=== PATIENT | female | born 1980 | race Caucasian/White ===

== ENCOUNTER 2017-02-06 11:12 | Emergency (ER) | payer OTHER ==
[2017-02-06] MEDS ORDERED: NS 0.9% 1000 ML* 1,000 ML IV ONE (11:44)
[2017-02-06 12:12] LABS: Hematocrit 39 % (35-47); Hemoglobin 13.4 g/dl (12.0-16.0); Mean Corpuscular HGB Conc 34 g/dl (31-36); Mean Corpuscular Hemoglobin 31 pg (27-31); Mean Corpuscular Volume 91 fL (80-97); Mean Platelet Volume 7 um3 (7.4-10.4); Red Cell Distribution Width 13 % (10.5-15); White Blood Count 5.4 10^3/ul (3.5-10.8)
[2017-02-06 12:28] LABS: ALT 18 U/L (7-52); AST 22 U/L (13-39); Albumin 4.4 g/dL (3.2-5.2); Alkaline Phosphatase 50 U/L (34-104); Anion Gap 7 mmol/L (2-11); BUN/Creatinine Ratio 16.5 (8-20); Blood Urea Nitrogen 14 mg/dL (6-24); CO2 Carbon Dioxide 27 mmol/L (22-32); Calcium 9.5 mg/dL (8.6-10.3); Chloride 104 mmol/L (101-111); EGFR African American 97.3 (>60); EGFR Non-African American 75.7 (>60); Globulin 3.4 g/dL (2-4); Glucose 100 mg/dL (70-100); Magnesium 2.1 mg/dL (1.9-2.7); Potassium 3.4 mmol/L (3.5-5.0); Sodium 138 mmol/L (133-145); Total Protein 7.8 g/dL (6.4-8.9)
[2017-02-06 12:32] LABS: Troponin I 0.01 ng/mL (<0.04)
[2017-02-06] MEDS ORDERED: Iohexol 350* (CONTRAST) 500 ML MDV IV ONE (12:40)
[2017-02-06 13:04] LABS: TSH (Thyroid Stimulating Horm) 1.87 mcIU/mL (0.34-5.60)
--- NOTE | 2017-02-06 13:19 | RAD ---
INDICATION: Frontal headache and bilateral hand weakness and numbness. COMPARISON: There are no prior studies available for comparison. TECHNIQUE: Contiguous axial sections of the brain were obtained from the skull base to the vertex without contrast. FINDINGS: The ventricles, cisterns and sulci are within normal limits. No significant focal abnormality or mass effect is seen. There is no evidence for hemorrhage. No significant focal osseous abnormality is seen. The visualized portion of the paranasal sinuses and mastoid air cells appear clear. IMPRESSION: NO EVIDENCE FOR GROSS ACUTE INFARCT, MASS EFFECT OR HEMORRHAGE.
[2017-02-06 13:24] LABS: Urine Bacteria Absent (Absent); Urine Bilirubin Negative (Negative); Urine Glucose Negative (Negative); Urine Nitrite Negative (Negative)
--- NOTE | 2017-02-06 13:29 | RAD ---
INDICATION: 36-year-old with intermittent frontal headaches and bilateral hand weakness and numbness. COMPARISON: None TECHNIQUE: Noncontrast axial source images was performed from the skull base to the thoracic inlet. Coronal and and sagittal reformatted images were generated. FINDINGS: Vertebrae: There is no fracture or acute focal bony lesion. Alignment: The craniocervical junction appears normal. The cervical vertebrae are normally aligned. Central Canal: There are no significant CT abnormalities of the central canal or foramina. MR imaging is a more sensitive method to evaluate the canal and foramina. Intervertebral disc spaces: The disc spaces are maintained. Brain: The visualized brain appears unremarkable. Soft tissues: The visualized soft tissue elements of the neck are unremarkable. The prevertebral soft tissues appear normal. The lung apices are clear. IMPRESSION: NEGATIVE EXAMINATION.
--- NOTE | 2017-02-06 13:34 | RAD ---
INDICATION: Chest pain, history of pulmonary embolism. COMPARISON: There are no prior studies available for comparison. TECHNIQUE: A CT angiogram of the chest was performed with intravenous following intravenous injection of 72 ml of Omnipaque 350 nonionic contrast. Contiguous axial sections were obtained from the lung apices through the lung bases. Images were reconstructed in the coronal and sagittal planes. FINDINGS: There is relatively homogeneous opacification of the pulmonary arteries. No intraluminal filling defect or pulmonary embolism is seen. The heart is within normal limits in size. No pericardial effusion is present. The thoracic aorta is normal in caliber and demonstrates homogeneous contrast opacification. No significant enlarged mediastinal or hilar lymph nodes are seen. There is residual thymus tissue present within the anterior mediastinum. There is mild dependent bilateral lower lobe subsegmental atelectasis. The lungs are otherwise clear. No pleural effusion is seen. No significant focal osseous abnormality is seen. IMPRESSION: NO EVIDENCE FOR PULMONARY EMBOLISM.
--- NOTE | 2017-02-06 13:39 | RAD ---
INDICATION: Bilateral and intermittent hand and arm numbness COMPARISON: CT brain same date TECHNIQUE: Axial source images were acquired with coronal and sagittal reconstructions. CT angiographic technique was utilized with injection of 80 mL Omnipaque 350. FINDINGS: Aortic arch: There are no CT angiogram abnormalities of the arch or the great vessels arising from the arch. Right carotid: The internal carotid artery, carotid bifurcation, extracranial portions of the internal carotid artery, carotid artery at the skull base, carotid siphon, and carotid termination appear normal. Left carotid:The internal carotid artery, carotid bifurcation, extracranial portions of the internal carotid artery, carotid artery at the skull base, carotid siphon, and carotid termination appear normal. Right middle and anterior cerebral arteries: There are no CT angiographic abnormalities of the middle or anterior cerebral arteries. Left middle and anterior cerebral arteries: There are no CT angiographic abnormalities of the middle or anterior cerebral arteries Right vertebral: The CT angiographic appearance of the vertebral artery is normal. Left vertebral: The CT angiographic appearance of the vertebral artery is normal. Basilar artery: The basilar artery and basilar tip appear normal. Posterior cerebral arteries: The distal distribution of the right and left posterior cerebral arteries is normal. [place]: The CT angiographic appearance of the [place] is normal. Source images show no evidence of mass or adenopathy within the neck. There are no focal brain parenchymal abnormalities or abnormal areas of enhancement. IMPRESSION: NEGATIVE CTA OF THE HEAD AND NECK CPT II Codes: 3100F RS
[2017-02-06 14:40] VITALS: BP 118/77
--- NOTE | 2017-02-06 14:40 | ED ---
Fatou Rosales Rebecca, scribed for Daniel Pickering MD on 02/06/17 at 1142 . Neurological HPI - HPI Summary HPI Summary: Pt is a 36 y/o F BIBA who presents to ED c/o bilateral UE numbness. Pt reports the episode began this morning at 0930, starting in the hands, then progressively moving upwards up to the elbows. Describes the sensation as feeling "like pins and needles" and that her "hands started feeling really heavy." Upon evaluation at 1130 in the ED, 2 hours after onset, sx are still present but have moved downwards to just affect the hands. Additionally c/o hand tremors, sudden onset, moderate frontal ROOT and bilateral "glossy" vision. Her vision was described as that the "vision didn't cut out, but it was very glossy." ROOT is currently resolved, though when it was present it was moderate, ranked 5/10 and resolved spontaneously. Additionally notes a sharp, L-sided rib pain that began suddenly last night and resolved after a brief time. Denies any acute LE numbness, acute neck pain, SOB, CP, palpitations, difficultly hearing, abd pain and facial numbness. Reports chronic bilateral foot numbness secondary to poor circulation, but no acute numbness. No bladder or bowel changes. Prior similar episode of bilateral UE numbness last night that subsided suddenly after 3-4 hours. PMHx clotting disorder, PE, chronic neck pain and migraines every few days. Pt reports she will sometimes experience auras prior to onset of migraines, described as "feeling weird." Current ROOT is similar to those she typically experiences. Recently began her period which is typically heavy. - History of Current Complaint Chief Complaint: EDNeurologicalDeficit Stated Complaint: HANDS AND ARMS TINGLING Time Seen by Provider: 02/06/17 11:22 Hx Obtained From: Patient Onset/Duration: Started hours ago - 0930 this morning Onset Severity: Moderate - 5/10 Current Severity: None Headache Location: Frontal Pain Intensity: 0 Pain Scale Used: 0-10 Numeric Character: Numbness/Tingling - Bilateral UE numbness Aggravating: Nothing Alleviating: Spontanious Resolution Associated Signs and Symptoms: Positive: Visual Changes - "glossy" vision, Headache - resolved. Negative: Chest Pain, Shortness of Breath, Palpitations - Allergy/Home Medications Allergies/Adverse Reactions: Allergies Allergy/AdvReac Type Severity Reaction Status Date / Time No Known Allergies Allergy Verified 02/06/17 11:31 PMH/Surg Hx/FS Hx/Imm Hx Endocrine/Hematology History: Reports: Other Endocrine/Hematological Disorders - "Clotting disorder" Respiratory History: Reports: Hx Pulmonary Embolism Musculoskeletal History: Reports: Other Musculoskeletal History - Hx Chronic neck pain Neurological History: Reports: Hx Migraine Infectious Disease History: No Infectious Disease History: Denies: Traveled Outside the [place] in Last 30 Days - Family History Known Family History: Positive: Hypertension, Diabetes, Other - CA, MS (mother) - Social History Alcohol Use: None Substance Use Type: Reports: None Smoking Status (MU): Former Smoker Review of Systems Positive: Other - Bilateral "glossy" vision Positive: Other - NEGATIVE: difficult hearing Negative: Palpitations, Chest Pain Negative: Shortness Of Breath Negative: Abdominal Pain Positive: Other - L-sided rib pain - resolved NEGATIVE: acute neck pain Neurological: Other - Hand tremors Positive: Headache - Moderate frontal ROOT - resolved, Numbness - Bilateral UE numbness; NEGATIVE: acute LE numbness and facial numbness All Other Systems Reviewed And Are Negative: Yes Physical Exam - Summary Physical Exam Summary: General: well-appearing, no pain distress Skin: warm, color reflects adequate perfusion, dry Head: normal Eyes: EOMI, KASSIE ENT: normal Neck: supple, nontender Respiratory: CTA, breath sounds present Cardiovascular: RRR Abdomen: soft, nontender Bowel: present Musculoskeletal: normal, strength/ROM intact, pulses are symmetric and equal, benign examination of the LE Neurological: sensory intact, A&O x3, when she puts her arms out she still has a slight tremor in the left hand, director sales strengths are symmetric but 4/5 strength , no facial droop. Bicep, brachioradialis and tricep reflexes are all intact bilaterally. Psychological: affect/mood appropriate NIH: 0 GCS: 15 Triage Information Reviewed: Yes Vital Signs On Initial Exam: Initial Vitals BP 139/79 02/06/17 11:18 Vital Signs Reviewed: Yes - Gail Coma Scale Best Eye Response: 4 - Spontaneous Best Motor Response: 6 - Obeys Commands Best Verbal Response: 5 - Oriented Coma Scale Total: 15 Diagnostics - Vital Signs Vital Signs Temp Pulse Resp BP Pulse Ox 02/06/17 11:20 98.3 F 97 17 139/79 99 02/06/17 11:18 139/79 - Laboratory Lab Results: Lab Results 02/06/17 02/06/17 02/06/17 Range/Units 12:02 12:02 12:02 WBC 5.4 (3.5-10.8) 10^3/ul RBC 4.30 (4.0-5.4) 10^6/ul Hgb 13.4 (12.0-16.0) g/dl Hct 39 (35-47) % MCV 91 (80-97) fL MCH 31 (27-31) pg MCHC 34 (31-36) g/dl RDW 13 (10.5-15) % Plt Count 328 (150-450) 10^3/ul MPV 7 L (7.4-10.4) um3 Neut % (Auto) 59.5 (38-83) % Lymph % (Auto) 28.4 (25-47) % [place] % (Auto) 6.3 (1-9) % Eos % (Auto) 4.4 (0-6) % Baso % (Auto) 1.4 (0-2) % Absolute Neuts (auto) 3.2 (1.5-7.7) 10^3/ul Absolute Lymphs (auto) 1.5 (1.0-4.8) 10^3/ul Absolute Monos (auto) 0.3 (0-0.8) 10^3/ul Absolute Eos (auto) 0.2 (0-0.6) 10^3/ul Absolute Basos (auto) 0.1 (0-0.2) 10^3/ul Absolute Nucleated RBC 0 10^3/ul Nucleated RBC % 0 INR (Anticoag Therapy) 0.88 L (0.89-1.11) APTT 27.0 (26.0-36.3) seconds D-Dimer, Quantitative < 200 (Less Than 230) ng/mL Sodium 138 (133-145) mmol/L Potassium 3.4 L (3.5-5.0) mmol/L Chloride 104 (101-111) mmol/L Carbon Dioxide 27 (22-32) mmol/L Anion Gap 7 (2-11) mmol/L BUN 14 (6-24) mg/dL Creatinine 0.85 (0.51-0.95) mg/dL Est GFR ( Amer) 97.3 (>60) Est GFR (Non-Af Amer) 75.7 (>60) BUN/Creatinine Ratio 16.5 (8-20) Glucose 100 (70-100) mg/dL Calcium 9.5 (8.6-10.3) mg/dL Magnesium 2.1 (1.9-2.7) mg/dL Total Bilirubin 0.40 (0.2-1.0) mg/dL AST 22 (13-39) U/L ALT 18 (7-52) U/L Alkaline Phosphatase 50 (34-104) U/L Troponin I 0.01 (<0.04) ng/mL C-Reactive Protein 2.40 (< 5.00) mg/L Total Protein 7.8 (6.4-8.9) g/dL Albumin 4.4 (3.2-5.2) g/dL Globulin 3.4 (2-4) g/dL Albumin/Globulin Ratio 1.3 (1-3) TSH 1.87 (0.34-5.60) mcIU/mL Beta HCG, Quant < 0.60 mIU/mL Urine Color Urine Appearance Urine pH (5-9) Ur Specific [place] (1.010-1.030) Urine Protein (Negative) Urine Ketones (Negative) Urine Blood (Negative) Urine Nitrate (Negative) Urine Bilirubin (Negative) Urine Urobilinogen (Negative) Ur Leukocyte Esterase (Negative) Urine WBC (Auto) (Absent) Urine RBC (Auto) (Absent) Ur Squamous Epith Cells (Absent) Urine Bacteria (Absent) Urine Glucose (Negative) 02/06/17 Range/Units 12:15 WBC (3.5-10.8) 10^3/ul RBC (4.0-5.4) 10^6/ul Hgb (12.0-16.0) g/dl Hct (35-47) % MCV (80-97) fL MCH (27-31) pg MCHC (31-36) g/dl RDW (10.5-15) % Plt Count (150-450) 10^3/ul MPV (7.4-10.4) um3 Neut % (Auto) (38-83) % Lymph % (Auto) (25-47) % [place] % (Auto) (1-9) % Eos % (Auto) (0-6) % Baso % (Auto) (0-2) % Absolute Neuts (auto) (1.5-7.7) 10^3/ul Absolute Lymphs (auto) (1.0-4.8) 10^3/ul Absolute Monos (auto) (0-0.8) 10^3/ul Absolute Eos (auto) (0-0.6) 10^3/ul Absolute Basos (auto) (0-0.2) 10^3/ul Absolute Nucleated RBC 10^3/ul Nucleated RBC % INR (Anticoag Therapy) (0.89-1.11) APTT (26.0-36.3) seconds D-Dimer, Quantitative (Less Than 230) ng/mL Sodium (133-145) mmol/L Potassium (3.5-5.0) mmol/L Chloride (101-111) mmol/L Carbon Dioxide (22-32) mmol/L Anion Gap (2-11) mmol/L BUN (6-24) mg/dL Creatinine (0.51-0.95) mg/dL Est GFR ( Amer) (>60) Est GFR (Non-Af Amer) (>60) BUN/Creatinine Ratio (8-20) Glucose (70-100) mg/dL Calcium (8.6-10.3) mg/dL Magnesium (1.9-2.7) mg/dL Total Bilirubin (0.2-1.0) mg/dL AST (13-39) U/L ALT (7-52) U/L Alkaline Phosphatase (34-104) U/L Troponin I (<0.04) ng/mL C-Reactive Protein (< 5.00) mg/L Total Protein (6.4-8.9) g/dL Albumin (3.2-5.2) g/dL Globulin (2-4) g/dL Albumin/Globulin Ratio (1-3) TSH (0.34-5.60) mcIU/mL Beta HCG, Quant mIU/mL Urine Color Straw Urine Appearance Clear Urine pH 7.0 (5-9) Ur Specific [place] 1.003 L (1.010-1.030) Urine Protein Negative (Negative) Urine Ketones Negative (Negative) Urine Blood 1+ H (Negative) Urine Nitrate Negative (Negative) Urine Bilirubin Negative (Negative) Urine Urobilinogen Negative (Negative) Ur Leukocyte Esterase Negative (Negative) Urine WBC (Auto) Absent (Absent) Urine RBC (Auto) Trace(0-2/hpf) (Absent) Ur Squamous Epith Cells Present H (Absent) Urine Bacteria Absent (Absent) Urine Glucose Negative (Negative) Result Diagrams: 02/06/17 12:02 02/06/17 12:02 Lab Statement: Any lab studies that have been ordered have been reviewed, and results considered in the medical decision making process. - CT Brain CT CT Interpretation: No Acute Changes - NO EVIDENCE FOR GROSS ACUTE INFARCT, MASS EFFECT OR HEMORRHAGE. ED phsyician reviewed this radiology report and agrees. CT Interpretation Completed By: Radiologist C-Spine CT CT Interpretation: No Acute Changes - NEGATIVE EXAMINATION. ED physician reviewed this radiology report and agrees. CT Interpretation Completed By: Radiologist Chest/Thorax CTA CT Interpretation: No Acute Changes - NO EVIDENCE FOR PULMONARY EMBOLISM. 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-Paretic Hand: Both Correctly Best Gaze (Only Horizontal Eye Movement): Normal Visual Field Testing: No Visual Loss Facial Paresis-Pt to Smile & Close Eyes or Grimace Symmetry: Normal/Symmetrical Motor Function - Right Arm: No Drift-Holds 10 Seconds Motor Function - Left Arm: No Drift-Holds 10 Seconds Motor Function - Right Leg: No Drift-Holds 10 Seconds Motor Function - Left Leg: No Drift-Holds 10 Seconds Limb Ataxia-Must be out of Proportion to Weakness Present: Absent Sensory (Use Pinprick to Test Arms/Legs/Trunk/Face): Normal Best Language (Describe Picture, Name Items): No Aphasia Dysarthria (Read Several Words): Normal Extinction and Inattention: No Abnormality Total Score: 0 Re-Evaluation - Re-Evaluation First Eval Re-Evaluation Time: 11:57 Change: Unchanged Comment: Tested her bicep, brachioradialis and tricep reflexes, all of which are intact bilaterally. She revealed to have a PMHx of a clotting disorder and PE. Second Eval Re-Evaluation Time: 14:22 Change: Improved Comment: All Sx have completely resolved. Course/Dx - Course Assessment/Plan: Pt is a 36 y/o F BIBA who presents to ED c/o bilateral UE numbness. Pt reports the episode began this morning at 0930, starting in the hands, then progressively moving upwards up to the elbows. Describes the sensation as feeling "like pins and needles" and that her "hands started feeling really heavy." Upon evaluation at 1130 in the ED, 2 hours after onset, sx are still present but have moved downwards to just affect the hands. Additionally c/o hand tremors, sudden onset, moderate frontal ROOT and bilateral "glossy" vision. Her vision was described as that the "vision didn't cut out, but it was very glossy." ROOT is currently resolved, though when it was present it was moderate, ranked 5/10 and resolved spontaneously. Additionally notes a sharp, L-sided rib pain that began suddenly last night and resolved after a brief time. Denies any acute LE numbness, acute neck pain, SOB, CP, palpitations , difficultly hearing, abd pain and facial numbness. Reports chronic bilateral foot numbness secondary to poor circulation, but no acute numbness. No bladder or bowel changes. Prior similar episode of bilateral UE numbness last night that subsided suddenly after 3-4 hours. PMHx chronic neck pain and migraines every few days. Pt reports she will sometimes experience auras prior to onset of migraines, described as "feeling weird." Current ROOT is similar to those she typically experiences. Recently began her period which is typically heavy. CT brain, CTA head/neck, CT C-Spine and CTA chest/thorax all reveal no acute findings. EKG reveals sinus rhythm with no STEMI and no ectopy. In the ED course , the pt was administered fluids which improved sx. Discussed care of pt with Dr. Olguin who advised a head/neck CTA, CT head and neck with labs and requested a call back with results. Discussed care of pt with Dr. Olguin again at 1424 who believes that it most likely sounds to be a complex migraine and that she can follow up in his office. Elevated BP noted and advised to f/u with PCP. SX COMPLETELY IMPROVED AT DISCHARGE. DISCUSSED WITH DR OLGUIN, NEUROLOGY. MOST PROBABLE CAUSE IS COMPLEX MIGRAINE. THE PLAN IS FOR THE PATIENT TO F/U WITH DR OLGUIN AN OUT PATIENT; RETURN IF WORSE. THIS AND RESULTS ALL DISCUSSED WITH THE PATIENT. - Diagnoses Provider Diagnoses: Headache, Paresthesia of both hands, Hand weakness - Physician Notifications Discussed Care Of Patient With: Angel Olguin Time Discussed With Above Provider: 11:38 Instructed by Provider To: Other - Advised a head/neck CTA, CT head and neck with labs and requested a call back with results. Discussed care of pt with Dr. Olguin again at 1424 who believes that it most likely sounds to be a complex migraine and that she can follow up in his office. Discharge - Discharge Plan Condition: Stable Disposition: HOME Patient Education Materials: Acute Headache (ED), Paresthesia (ED) Referrals: Yazmin Villegas MD [Primary Care Provider] - Angel Olguin MD [Medical Doctor] - [facility] [Provider Group] Additional Instructions: FOLLOW UP WITH YOUR DOCTOR. RETURN TO THE EMERGENCY DEPARTMENT FOR ANY WORSENING OF YOUR CONDITION; PAIN, WEAKNESS, NUMBNESS, DIFFICULTY WITH VISION OR SPEECH OR QUESTIONS OR CONCERNS. The documentation as recorded by the Fatou mei Rebecca accurately reflects the service I personally performed and the decisions made by me, Daniel Pickering MD.
== END 2017-02-06 14:51 | disposition home or self-care (01) ==
LOC: ED 11:12
DX: R21 Rash and other nonspecific skin eruption (principal); R20.9 Unspecified disturbances of skin sensation; R53.1 Weakness
CPT/HCPCS: 36415; 70450; 70496; 70498; 71275; 72125; 80053; 81003; 81015; 83735; 84443; 84484; 84702; 85025; 85379; 85610; 85730; 86140; 93005; 99282; Q9967

== ENCOUNTER 2018-03-20 07:35 | Emergency (ER) | payer OTHER ==
[2018-03-20 08:19] VITALS: BP 131/74
--- NOTE | 2018-03-20 10:26 | UC ---
Respiratory Complaint HPI - HPI Summary HPI Summary: 2 MONTHS OF INTERMITTENT, WAXING AND WANING URI SYMPTOMS INCLUDING COUGH, CONGESTION AND SINUS PRESSURE. NO FEVER, NAUSEA/VOMITING, SORE THROAT OR EAR PAIN. - History of Current Complaint Chief Complaint: UCRespiratory Stated Complaint: COUGH Time Seen by Provider: 03/20/18 09:31 Hx Obtained From: Patient Hx Last Menstrual Period: 03/16/18 Onset/Duration: Gradual Onset, Lasting Weeks, Still Present Severity Initially: Moderate Severity Currently: Moderate Pain Intensity: 3 Pain Scale Used: 0-10 Numeric Character: Cough: Nonproductive Aggravating Factors: Nothing Alleviating Factors: Nothing Associated Signs And Symptoms: Positive: URI, Nasal Congestion, Sinus Discomfort. Negative: Dyspnea, Fever - Allergies/Home Medications Allergies/Adverse Reactions: Allergies Allergy/AdvReac Type Severity Reaction Status Date / Time No Known Allergies Allergy Verified 03/20/18 08:19 Home Medications: Home Medications Budesonide/Formote 160/4.5(NF) [Symbicort 160/4.5 (NF)] 1 puff INH DAILY [History Confirmed 03/20/18] Cholecalciferol (Vitamin D3) [Vitamin D3] 2,000 unit PO DAILY 03/20/18 [History Confirmed 03/20/18] Vitamin B Complex [Super B-50 Complex] 1 each PO DAILY 03/20/18 [History Confirmed 03/20/18] PMH/Surg Hx/FS Hx/Imm Hx - Additional Past Medical History Additional PMH: PE Respiratory History: Asthma - Surgical History Surgical History: None - Family History Known Family History: Positive: Hypertension, Diabetes, Other - CA, MS (mother) - Social History Alcohol Use: Occasionally Substance Use Type: None Smoking Status (MU): Former Smoker Review of Systems Constitutional: Fatigue ENT: Nasal Discharge, Sinus Congestion Respiratory: Cough Cardiovascular: Negative Gastrointestinal: Negative All Other Systems Reviewed And Are Negative: Yes Physical Exam Triage Information Reviewed: Yes Appearance: Well-Appearing, No Pain Distress, Well-Nourished Vital Signs: Initial Vital Signs Temp 98.3 F 03/20/18 08:15 Pulse 83 03/20/18 08:15 Resp 18 03/20/18 08:15 BP 131/74 03/20/18 08:15 Pulse Ox 98 03/20/18 08:15 Vital Signs Reviewed: Yes Eyes: Positive: Conjunctiva Clear ENT: Positive: Hearing grossly normal, Pharynx normal, TMs normal Neck: Positive: Supple, Nontender, No Lymphadenopathy Respiratory Exam: Normal Cardiovascular Exam: Normal Abdomen Description: Positive: Soft Musculoskeletal: Positive: No Edema Neurological: Positive: Alert Psychological: Positive: Age Appropriate Behavior Skin: Negative: rashes UC Diagnostic Evaluation - Laboratory O2 Sat by Pulse Oximetry: 98 Respiratory Course/Dx - Differential Dx/Diagnosis Provider Diagnoses: ACUTE SINUSITIS Discharge - Sign-Out/Discharge Documenting (check all that apply): Patient Departure All imaging exams completed and their final reports reviewed: No Studies - Discharge Plan Condition: Stable Disposition: HOME Prescriptions: Amoxicillin/Clavulanate TAB* [Augmentin TAB 875*] 875 mg PO BID #20 tab predniSONE TAB* [Deltasone 20 MG TAB*] 40 mg PO DAILY #10 tab Patient Education Materials: Sinusitis (ED) Referrals: Maria Esther JEAN,Lulú Stern [Primary Care Provider] - If Needed Additional Instructions: YOUR SYMPTOMS MAY BE VIRALLY MEDIATED BUT GIVEN THE LENGTH OF TIME YOU HAVE BEEN ILL WE WILL COVER YOU WITH ANTIBIOTICS. IF YOU START THE MEDICINE BE SURE TO TAKE IT FOR THE FULL COURSE. REST, HYDRATE, OTC MEDS NEEDED. WILL ALSO TREAT WITH PREDNISONE TO HELP WITH AIRWAY INFLAMMATION. SEEK FOLLOW-UP WITH YOUR PCP IF YOU ARE NOT IMPROVING EXPECTED.. - Billing Disposition and Condition Condition: STABLE Disposition: Home
== END 2018-03-20 10:35 | disposition home or self-care (01) ==
LOC: UCEAST 07:35
DX: J01.90 Acute sinusitis, unspecified (principal); Z87.891 Personal history of nicotine dependence
CPT/HCPCS: 99212; G0463

== ENCOUNTER 2018-05-18 11:32 | Emergency (ER) | payer OTHER ==
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
[2018-05-18 14:36] VITALS: BP 117/75
== END 2018-05-18 14:54 | disposition home or self-care (01) ==
LOC: UCEAST 11:32
DX: M54.2 Cervicalgia (principal); V43.52XA Car driver injured in collision with other type car in traffic accident, initial encounter; Y92.9 Unspecified place or not applicable; F17.210 Nicotine dependence, cigarettes, uncomplicated
CPT/HCPCS: 72020; 72050; 84702; 99212; G0463

== ENCOUNTER 2019-07-13 08:23 | Emergency (ER) | payer OTHER ==
--- OUTSIDE RECORDS SUMMARY | 2019-07-13 08:30 | XMS REPORT | Summary of Care ---
:1980 Author Organization [facility] Address [address] [address] Care Team Providers Name Role Phone Lulú Mayo Primary Care Provider Reason for Visit Reason Comments Medication Check Encounter Details Date Type Department Care Team Description 06/18/2019 Office Visit [facility], Anxiety and depression Medicine URSZULA Ho (Primary Dx) [address] [place] [address] [place], [place] [phone] [id number] Allergies Active Allergy Reactions Severity Noted Date Comments Environmental Hives, Rash, Respiratory Medium 08/14/2009 Seasonal allergies to Reaction ragweed, hay. documented as of this encounter (statuses as of 06/18/2019) Medications Medication Sig Dispensed Refills Start Date End Date Status budesonide-formote Take 2 INHL by 1 Inhaler 3 06/20/2017 Active rol fumarate inhalation TWICE (SYMBICORT) DAILY. 160-4.5 MCG/ACT Inhalation AerosolIndications : Bronchitis fluticasone [place] 2 Sprays 1 Bottle 5 04/16/2018 Active (FLONASE) 50 in nose DAILY. MCG/ACT Nasal SuspensionIndicati ons: ETD (Eustachian tube dysfunction), right MULTIPLE VITAMIN Take by mouth 0 Active PO DAILY. Magnesium Citrate Take 1 Tab by 0 Active 200 MG Oral Tab mouth DAILY. escitalopram Take 1 Tab by 30 Tab 5 06/18/2019 Active (LEXAPRO) 10 MG mouth DAILY. Oral TabIndications: Anxiety and depression escitalopram Take 1 Tab by 30 Tab 5 04/30/2019 Discontinued (LEXAPRO) 5 MG mouth DAILY. 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 Aguilera took pt off coumadin. Managed by [facility], referred by Dr. Cullen Wynn, Dx PE , target INR range 2.0-3.0, therapy initiated on 08/14/2012, duration of therapy undetermined Anticoagulant Warfarin, 5mg & 7.5mg pills Received ACS orders from Adalgisa Kern NP 08/16/13. WARFARIN THERAPY ON HOLD DUE TO . PT CURRENTLY ON LOVENOX INJECTIONS Supervision of other normal 11/23/2009 05/19/2014 documented as of this encounter (statuses as of 06/18/2019) Immunizations Name Administration Dates Next Due Influenza (IM) Preservative Free 04/04/2014, 04/14/2010 Influenza (IM) W/Pres 03/18/2017, 04/05/2016, 04/05/2015 TDAP Vaccine 02/18/2014 documented as of this encounter Social History Tobacco Use Types Packs/Day Years Used Date Former Smoker Cigarettes 0.5 Quit: 02/13/2015 Smokeless Tobacco: Never Used Alcohol Use Drinks/Week oz/Week Comments Yes 0 Standard drinks or equivalent 0.0 occasional Sex Assigned at Date Recorded Not on file Job Start Date Occupation Industry Not on file Not on file Not on file Travel History Travel Start Travel End No recent travel history available. documented as of this encounter Last Filed Vital Signs Vital Sign Reading Time Taken Comments Blood Pressure 128/74 06/18/2019 2:38 PM EST Pulse 72 06/18/2019 2:38 PM EST Temperature - - Respiratory Rate - - Oxygen Saturation 96% 06/18/2019 2:38 PM EST Inhaled Oxygen Concentration - - Weight 86.2 kg (190 lb) 06/18/2019 2:38 PM EST Height 180.3 cm (5' 11") 06/18/2019 2:38 PM EST Body Mass Index 26.5 06/18/2019 2:38 PM EST documented in this encounter Patient Instructions Patient InstructionsGeorgia Kirby NP - 06/18/2019 2:40 PM ESTIncrease Lexapro to 10 mg daily Follow-up with me in 2-3 months Follow-up sooner as needed documented in this encounter Progress Notes Georgia Kirby NP - 06/18/2019 2:40 PM EST Patient: Janette Dewitt : 1980 Date of Service: 06/18/2019 Chief Complaint Patient presents with Medication Check SUBJECTIVE: Janette Dewitt is a 38-y.o. female who presents today for follow-up for depression and anxiety. Was started on lexapro 5 mg on 04/23. Is tolerating well. Anxiety has improved. Does have occasionalirritability. Is open to increasing dose. Has had some difficulty finding a therapist that will take her insurance. But all in all, doing well. ROS All pertinent items are noted in the subjective above. Allergies Allergen Reactions Environmental Hives, Rash and Respiratory Reaction Seasonal allergies to ragweed, hay. Outpatient Medications Marked as Taking for the 06/18/19 encounter (Office Visit) with Georgia Kirby NP Medication Sig Dispense Refill escitalopram (LEXAPRO) 10 MG Oral Tab Take 1 Tab by mouth DAILY. 30 Tab 5 Social History Tobacco Use Smoking status: Former Smoker Packs/day: 0.50 Types: Cigarettes Last attempt to quit: 02/13/2015 Years since quittin.3 Smokeless tobacco: Never Used Substance Use Topics Alcohol use: Yes Alcohol/week: 0.0 standard drinks Comment: occasional Drug use: No OBJECTIVE: BP 128/74 | Pulse 72 | Ht 5' 11" (1.803 m) | Wt 190 lb (86.2 kg) | SpO2 96% | No| BMI 26.50 kg/m Physical Exam Constitutional: She is well-developed, well-nourished, and in no distress. HENT: Head: Normocephalic. Eyes: Pupils are equal, round, and reactive to light. Neck: Normal range of motion. Pulmonary/Chest: Effort normal. Neurological: She is alert. Gait normal. Skin: Skin is warm and dry. Psychiatric: Mood and affect normal. ASSESSMENT:/PLAN: ICD-9-CM ICD-10-CM 1. Anxiety and depression 300.00 F41.9 escitalopram (LEXAPRO) 10 MG Oral Tab 311 F32.9 Patient Instructions Increase Lexapro to 10 mg daily Follow-up with me in 2-3 months Follow-up sooner as needed Georgia Kirby NP 06/18/2019 16:15 documented in this encounter Plan of Treatment Date Type Specialty Care Team Description 09/17/2019 Office Visit Internal Medicine Georgia Kirby NP [address] [place] [address] Health Maintenance Due Date Last Done Comments INFLUENZA VACCINE (#1) 2019 03/18/2017, 04/05/2016, Postponed from 04/05/2015, Additional 02/14/2019 (Other) history exists DEPRESSION SCREENING 04/30/2020 04/30/2019, 04/30/2019 PAP SMEAR 05/16/2020 05/16/2017, 05/19/2014, 08/25/2009, Additional history exists DTaP/Tdap/Td Vaccines (2 - 02/19/2024 02/18/2014 Tdap) HEPATITIS A IMMUNIZATION Aged Out No longer eligible SERIES based on patient's age to complete this topic HPV IMMUNIZATION SERIES Aged Out No longer eligible based on patient's age to complete this topic MENINGOCOCCAL VACCINE IMM Aged Out No longer eligible based on patient's age to complete this topic PNEUMOCOCCAL 0-64 YRS Aged Out No longer eligible based on patient's age to complete this topic documented as of this encounter Goals Goal Patient Goal Associated Recent Patient-Stated? Author Type Problems Progress Depression Depression 17 No Kofi screen (PHQ-9) (04/30/2019 Georgia, total score < 5 2:30 PM EST) QUALITY ASSURANCE NURSE Note: This is an individualized treatment (depression) goal for Janette Dewitt: Displayed above is your goal for a depression screening (PHQ-9) score that would indicate good control of your depression. Keep a regular sleep schedule Lifestyle No Georgia Kirby NP Note: This is an individualized lifestyle goal for Janette Dewitt: Please maintain a regular sleep schedule. This may help with some symptoms of depression. Take all prescribed medications as Self-management No Georgia Kirby NP directed Note: This is an individualized self-management goal for Janette Dewitt: Please take all prescribed medications as directed. 1. Do not skip doses. If you cannot afford your medications, talk with your doctor. 2. Use a pill reminder system such as a pill box if needed. Your pharmacist can help you with this. 3. Contact your Pharmacy 5 days before your medication runs out. If you cannot take your medications for any reasons, talk with your doctor. 4. Please bring all of your medication bottles and inhalers (or a list of all your medications/inhalers) with you to every visit. Potential barriers to meeting all of your care plan goals will continue to be addressed on an ongoing basis. documented as of this encounter Results Not on filedocumented in this encounter Visit Diagnoses Diagnosis Anxiety and depression Dysthymic disorder documented in this encounter Insurance Payer Benefit Plan / Subscriber ID Effective Dates Phone Address Type Group [facility] xxxxxxxxxxx Effective for all [facility] Guarantor Name Account Type Relation to Date of Phone Billing Patient Address Janette Dewitt Personal/Family 1980 [address] (Home) [place], [place] [phone] (Work) documented as of this encounter
[2019-07-13 09:01] VITALS: BP 143/81
--- NOTE | 2019-07-13 11:07 | UC ---
Respiratory Complaint HPI - HPI Summary HPI Summary: PATIENT HAS BEEN COUGHING FOR SEVERAL MONTHS. NO FEVER. NO SHORTNESS OF BREATH. NO CHEST PAIN. TODAY HAS A SORE THROAT. SON POSITIVE FOR STREP. - History of Current Complaint Chief Complaint: [facility] Stated Complaint: SORE THROAT,COUGH Time Seen by Provider: 07/13/19 09:36 Hx Obtained From: Patient Hx Last Menstrual Period: last month Onset/Duration: Gradual Onset, Lasting Weeks Timing: Constant Severity Initially: Moderate Severity Currently: Moderate Pain Intensity: 3 Pain Scale Used: 0-10 Numeric Character: Cough: Nonproductive Aggravating Factors: Nothing Alleviating Factors: Nothing Associated Signs And Symptoms: Positive: URI - Allergies/Home Medications Allergies/Adverse Reactions: Allergies Allergy/AdvReac Type Severity Reaction Status Date / Time environmental Allergy Congestion Uncoded 07/13/19 09:01 Home Medications: Home Medications Escitalopram Oxalate [Lexapro 10 mg] 1 tab PO DAILY 07/13/19 [History Confirmed 07/13/19] Magnesium Oxide [Magnesium] 1 tab PO DAILY 07/13/19 [History Confirmed 07/13/19] Multivitamin [Multivitamins] 1 tab PO DAILY 07/13/19 [History Confirmed 07/13/19 ] PMH/Surg Hx/FS Hx/Imm Hx Respiratory History: Asthma - Surgical History Surgical History: None - Family History Known Family History: Positive: Hypertension, Diabetes, Other - CA, MS (mother) - Social History Alcohol Use: Occasionally Substance Use Type: None Smoking Status (MU): Light Every Day Tobacco Smoker Amount Used/How Often: 4-5 cig/day Household Exposure Type: Cigarettes Review of Systems All Other Systems Reviewed And Are Negative: Yes Constitutional: Positive: Negative ENT: Positive: Sore Throat Respiratory: Positive: Cough Cardiovascular: Positive: Negative Gastrointestinal: Positive: Negative Physical Exam Triage Information Reviewed: Yes Appearance: Well-Appearing, No Pain Distress, Well-Nourished Vital Signs: Initial Vital Signs Temp 98.4 F 07/13/19 08:54 Pulse 69 07/13/19 08:54 Resp 18 07/13/19 08:54 BP 143/81 07/13/19 08:54 Pulse Ox 98 07/13/19 08:54 Laboratory Tests 07/13/19 09:10 Group A Strep Rapid Negative Vital Signs Reviewed: Yes Eyes: Positive: Conjunctiva Clear ENT: Positive: Hearing grossly normal, Pharynx normal, TMs normal Neck: Positive: Supple, Nontender, No Lymphadenopathy Respiratory Exam: Normal Cardiovascular Exam: Normal Abdomen Description: Positive: Soft Musculoskeletal: Positive: No Edema Neurological: Positive: Muscle Tone Normal Psychological: Positive: Age Appropriate Behavior Skin: Negative: Rashes Respiratory Course/Dx - Course Course Of Treatment: STREP TEST NEGATIVE. WILL COVER FOR PROBABLE BRONCHITIS WITH PREDNISONE. AZITHROMYCIN FOR ANY POSSIBLE INFECTIOUS ETIOLOGY ESPECIALLY IN LIGHT OF SON POSITIVE FOR STREP. FOLLOW-UP IF NOT IMPROVING WITH TREATMENT. - Differential Dx/Diagnosis Provider Diagnosis: Acute bronchitis Discharge ED - Sign-Out/Discharge Documenting (check all that apply): Patient Departure All imaging exams completed and their final reports reviewed: No Studies - Discharge Plan Condition: Stable Disposition: HOME Prescriptions: Azithromycin 500 mg PO DAILY #5 tablet predniSONE 20 mg TAB [Deltasone 20 MG TAB*] 40 mg PO DAILY #10 tab Patient Education Materials: Acute Bronchitis (ED) Referrals: Maria Esther JEAN,Lulú Stern [Primary Care Provider] - If Needed Additional Instructions: STREP NEGATIVE. YOUR SYMPTOMS MAY BE VIRALLY MEDIATED BUT GIVEN THE LENGTH OF TIME YOU HAVE BEEN ILL AND YOUR POSITIVE STREP CONTACT AT HOME WE WILL COVER YOU WITH ANTIBIOTICS. REST, HYDRATE, OTC MEDS NEEDED. WILL ALSO TREAT WITH PREDNISONE TO HELP WITH AIRWAY INFLAMMATION. SEEK FOLLOW-UP WITH YOUR PCP IF YOU ARE NOT IMPROVING OVER THE NEXT 1-2 WEEKS. - Billing Disposition and Condition Condition: STABLE Disposition: Home
== END 2019-07-13 10:05 | disposition home or self-care (01) ==
LOC: UCEAST 08:23
DX: J45.909 Unspecified asthma, uncomplicated (principal); F17.210 Nicotine dependence, cigarettes, uncomplicated; Z91.09 Other allergy status, other than to drugs and biological substances
CPT/HCPCS: 87651; 99212; G0463

== ENCOUNTER 2021-08-13 10:12 | Inpatient (IN) ==
[2021-08-13 11:27] LABS: ABS Eosinophils 0.2 10^3/ul (0-0.6); ABS Lymphocytes 1.8 10^3/ul (1.0-4.8); ABS Monocytes 0.4 10^3/ul (0-0.8); ABS Neutrophils 7.5 10^3/ul (1.5-7.7); Eosinophil % 1.6 %; Hematocrit 33 % (35-47); Hemoglobin 11.3 g/dL (12.0-16.0); Lymphocyte % 17.8 %; Mean Corpuscular HGB Conc 35 g/dL (31-36); Mean Corpuscular Hemoglobin 32 pg (27-31); Mean Corpuscular Volume 91 fL (80-97); Mean Platelet Volume 7.6 fL (7.4-10.4); Platelet Count 342 10^3/uL (150-450); Red Blood Count 3.58 10^6 /uL (3.70-4.87); Red Cell Distribution Width 14 % (10-15); White Blood Count 9.9 10^3/uL (3.5-10.8)
[2021-08-13] MEDS ORDERED: ceFAZolin 2 GM in NS PREMIX 2 GM/100 ML BAG IVPB ONE (11:30)
[2021-08-13] MEDS ORDERED: ceFAZolin VIAL 1 GM in NS 0.9% 50 ML 50 ML IVPB SCH (12:00)
[2021-08-13] MEDS ORDERED: ceFAZolin 2 GM PREMIX 2 GM/50 ML BAG IVPB ONE (12:00)
[2021-08-13] MEDS ORDERED: Lactated Ringers 1000 ml BAG 1,000 ML IV SCH ×2 (12:00→22:00)
[2021-08-13] MEDS ORDERED: Oxytocin in LR 20 UNITS/1,000 ML BAG IVPB SCH (12:30)
[2021-08-13 14:31] LABS: Urine Benzodiazepine Screen None Detected (None Detect); Urine Cannabinoids Screen Presumptive Positive (None Detect); Urine Opiates Screen None Detected (None Detect)
[2021-08-13] MEDS ORDERED: OBEPIDURAL 250 ML EPIDURAL ONE (20:35)
[2021-08-13] MEDS ORDERED: Lactated Ringers 1000 ml BAG 1,000 ML IV ONE (21:38)
[2021-08-13] MEDS ORDERED: Sodium Citrate/Citric Acid LIQ 15 ML UDC PO PRN (21:38)
[2021-08-13] MEDS ORDERED: Phenylephrine 40 mcg/mL 10mL (400mcg) SYRINGE IV PUSH PRN ×2 (21:38)
[2021-08-13] MEDS ORDERED: Lactated Ringers 1000 ml BAG 500 ML IV PRN ×2 (21:38)
[2021-08-13] MEDS ORDERED: ceFAZolin 1 GM Q8H (ADVAN) IVPB SCH (22:00)
[2021-08-13] MEDS ORDERED: OBEPIDURAL 250 ML EPIDURAL SCH (22:00)
[2021-08-13 22:10] LABS: Urine Appearance Clear; Urine Bilirubin Negative (Negative); Urine Blood Negative (Negative); Urine Color Straw; Urine Glucose Negative (Negative); Urine Ketones Trace (Negative); Urine Nitrite Negative (Negative); Urine Protein Negative (Negative); Urine Specific Gravity 1.004 (1.002-1.030); Urine Urobilinogen Negative (Negative)
[2021-08-13] MEDS ORDERED: ceFAZolin 1 GM in Dextrose 1 GM/50 ML BAG IVPB SCH (23:30)
[2021-08-14] MEDS ORDERED: Oxytocin in LR 20 UNITS/1,000 ML BAG IVPB SCH (05:20)
[2021-08-14] MEDS ORDERED: Witch Hazel PAD JAR TOPICAL PRN (05:32)
[2021-08-14] MEDS ORDERED: Measles, Mumps,Rubella VACC 0.5 ML/VIAL SUBCUT ONE (05:32)
[2021-08-14] MEDS ORDERED: RHO D Immune Globulin (HUMAN) 300 MCG = 1,500 I.U. INJ IM PRN (05:32)
[2021-08-14] MEDS ORDERED: Dibucaine 1% OINT 28.35 GM TUBE PR PRN (05:32)
[2021-08-14] MEDS ORDERED: Lactated Ringers 1000 ml BAG 1,000 ML IV SCH (06:00)
[2021-08-15 05:56] LABS: ABS Basophils 0.1 10^3/ul (0-0.2); ABS Eosinophils 0.1 10^3/ul (0-0.6); ABS Lymphocytes 2.7 10^3/ul (1.0-4.8); ABS Monocytes 0.5 10^3/ul (0-0.8); ABS Neutrophils 9.4 10^3/ul (1.5-7.7); Eosinophil % 1.2 %; Hematocrit 30 % (35-47); Hemoglobin 10.2 g/dL (12.0-16.0); Mean Corpuscular HGB Conc 34 g/dL (31-36); Mean Corpuscular Hemoglobin 31 pg (27-31); Mean Corpuscular Volume 91 fL (80-97); Mean Platelet Volume 7.1 fL (7.4-10.4); Platelet Count 286 10^3/uL (150-450); Red Blood Count 3.28 10^6 /uL (3.70-4.87); Red Cell Distribution Width 14 % (10-15); White Blood Count 12.8 10^3/uL (3.5-10.8)
[2021-08-16 08:04] VITALS: BP 122/69
[2021-08-16] MEDS ORDERED: Measles, Mumps,Rubella VACC 0.5 ML/VIAL ONE (09:45)
== END 2021-08-16 11:40 | disposition home or self-care (01) | DRG 560 ==
LOC: MCHOBOUT 10:12 → MCHOB 10:38
PROVIDERS: ADMIT Midwife; ATTEND Midwife